=== PATIENT | male | born 1975 | race Hispanic/Latino ===

== ENCOUNTER 2024-12-18 13:47 | Emergency (ER) | payer OTHER, BC ==
[~2024-12-18] VITALS: Ht 177.8 cm; Wt 124.7 kg
--- NOTE | 2024-12-18 14:28 | NUR ---
PATIENT TAKEN TO CT BY [employer].
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
[2024-12-18 15:38] VITALS: BP 136/83; PULSE 80; RESP 17; TEMP 98.1; O2SAT 95
[2024-12-18] MEDS ORDERED: KETO10TA2 PO (16:05)
[2024-12-18] MEDS ORDERED: METH-662 PO (16:05)
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
== END 2024-12-18 16:11 | disposition home or self-care (01) ==
LOC: EDH 13:47
DX: S16.1XXA Strain of muscle, fascia and tendon at neck level, initial encounter (principal); S39.012A Strain of muscle, fascia and tendon of lower back, initial encounter; S00.03XA Contusion of scalp, initial encounter; E11.9 Type 2 diabetes mellitus without complications; V49.40XA Driver injured in collision with unspecified motor vehicles in traffic accident, initial encounter; Y93.I9 Activity, other involving external motion; Y92.410 Unspecified street and highway as the place of occurrence of the external cause; Y99.8 Other external cause status
CPT/HCPCS: 70450; 72125; 99284